=== PATIENT | male | born 1985 | race Caucasian/White ===

== ENCOUNTER 2018-04-13 12:35 | Emergency (ER) | payer MEDICAID ==
[2018-04-13] MEDS ORDERED: Diphtheria,Pertussis(Acell),Tetanus Vaccine 0.5 ML Syringe IM ONE (12:59)
--- NOTE | 2018-04-13 13:01 | EDM.PDOC ---
ED HPI GENERAL MEDICAL PROBLEM - General Chief Complaint: Laceration Stated Complaint: PT CUT FINGER ON LT HAND Time Seen by Provider: 04/13/18 12:44 Source of Information: Reports: Patient History Limitations: Reports: No Limitations - History of Present Illness INITIAL COMMENTS - FREE TEXT/NARRATIVE: HISTORY AND PHYSICAL: History of present illness: Patient is a 33-year-old male who presents to the emergency room today with complaints of a laceration which occurred last night around midnight. He states he was using a knife to cut something when it slipped creating a laceration to the left fifth digit. He states he applied a pressure dressing and went to bed. This morning he concerned as he was unable to bend his finger downward. Good sensation, no numbness or tingling. Tdap current. Review of systems: As per history of present illness and below otherwise all systems reviewed and negative. Past medical history: As per history of present illness and as reviewed below otherwise noncontributory. Surgical history: As per history of present illness and as reviewed below otherwise noncontributory. Social history: No reported history of drug or alcohol abuse. Family history: As per history of present illness and as reviewed below otherwise noncontributory. Physical exam: General: Well-developed and well-nourished 33-year-old male. Alert and oriented. Nontoxic appearing and in no acute distress. HEENT: Atraumatic, normocephalic, pupils equal and reactive bilaterally, negative for conjunctival pallor or scleral icterus, mucous membranes moist, throat clear, neck supple, nontender, trachea midline. No drooling or trismus noted. No meningeal signs Lungs: Clear to auscultation, breath sounds equal bilaterally, chest nontender. Heart: S1S2, regular rate and rhythm without overt murmur Abdomen: Soft, nondistended, nontender. Negative for masses. Negative for costovertebral tenderness. Pelvis: Stable nontender. Genitourinary: Deferred. Rectal: Deferred. Skin: 2 cm laceration to left 5th digit on the mid-finger on palmar surface. Otherwise intact, warm, dry. No lesions or rashes noted. Extremities: Appears to have flexor tendon injury of the left 5th digit, unable to bend finger into a closed food packer. Patient is able to extend and resist using the extensor tendon. No other finger or extremity involvement. Strong radial pulse. Cap refill less than 3 seconds. Neurovascular unremarkable. Neuro: Awake, alert, oriented. Cranial nerves II through XII unremarkable. Cerebellum unremarkable. Motor and sensory unremarkable throughout. Exam nonfocal. Notes: Dr Sanchez, hand surgery at [facility] in [place], is consulted on this case. He is requesting that the area be irrigated and an ulnar gutter splint to be applied. We'll place him on Keflex and he will follow-up with him tomorrow morning. This information was shared with the patient. I did also give him information for our local hand surgeon who may be available tomorrow. He voices understanding and is agreeable to plan of care. Denies any further questions or concerns at this time. 1% lidocaine was used to anesthetize the area. Patient tolerated well. Area was thoroughly irrigated with wound wash cleansed with chlorhexidine. No foreign debris noted. Usual and customary procedures were followed for sutures. 4-0 chromic was used, #6 interrupted sutures, patient tolerated well. Per Dr. Sanchez knees instructions patient was placed in a sugar tong splint. Prescription for Keflex. Signs and symptoms that would prompt him to return to the emergency room were reviewed and discussed. Reviewed the importance of close follow-up with the hand surgeon. Supportive care measures were reviewed and discussed. Patient voices understanding and is agreeable to plan of care. Denies any further questions or concerns at this time. Diagnostics: None Therapeutics: 1% lidocaine, wound care, nonstick dressing, splint Prescription: Keflex [place] Impression: Laceration Flexor Tendon Injury Plan: 1. Please keep the area clean and dry. Take the antibiotic as directed. Continue to monitor for signs of infection. 2. Please follow-up with the hand surgeon as we discussed. You may try to get in with Dr Barbara Huang, our hand surgeon. Or Dr Sanchez, Hand Surgeon at [facility], has agreed to see you. You need to be seen tomorrow for re- evaluation of the flexor tendon injury. 3. Tylenol and/or ibuprofen as needed for pain management. Rest, elevate the affected extremity. 4. Return to the ED as needed and as discussed. Definitive disposition and diagnosis as appropriate pending reevaluation and review of above. Duration: Hour(s): Location: Reports: Upper Extremity, Left Left 5-Little finger Pain Score (Numeric/FACES): 6 - Related Data Allergies Allergy/AdvReac Type Severity Reaction Status Date / Time No Known Allergies Allergy Verified 04/13/18 12:54 Home Meds: Home Meds . [No Known Home Meds] 04/13/18 [History] Past Medical History - Past Health History Medical/Surgical History: Denies Medical/Surgical History - Infectious Disease History Infectious Disease History: Reports: Chicken Pox Social & Family History - Family History Family Medical History: Noncontributory - Tobacco Use Smoking Status *Q: Current Every Day Smoker Years of Tobacco use: 1 Packs/Tins Daily: 0.5 - Recreational Drug Use Recreational Drug Use: No ED ROS GENERAL - Review of Systems Review Of Systems: ROS reveals no pertinent complaints other than HPI. ED EXAM, SKIN/RASH Exam: See Below (See dictation) ED SKIN PROCEDURES - Laceration/Wound Repair left 5th digit Lac/Wound length In cm: 2 Appearance: Subcutaneous Distal NVT: Neuro & Vascular Intact, Other (Flexor tendon injury) Anesthetic Type: Local Local Anesthesia - Lidocaine (Xylocaine): 1% Plain Local Anesthetic Volume: 3cc Skin Prep: Chlorhexidine (Hibiciens), Saline, Sterile Drape, Other (Wound Wash) Saline Irrigation (cc's): 50 Exploration/Debridement/Repair: Wound Explored, In a Bloodless Field, No Foreign Material Found Closed with: Sutures Suture Size: 4-0 # of Sutures: 6 Suture Type: Nylon, Interrupted Drain Placement: No Sterile Dressing Applied: Provider Tetanus Status Addressed: Yes Complications: No Course - Vital Signs Last Recorded V/S: Last Vital Signs Temp 99.2 F 04/13/18 12:51 Pulse 93 04/13/18 12:51 Resp 18 04/13/18 12:51 BP 125/75 04/13/18 12:51 Pulse Ox 95 04/13/18 12:51 - Orders/Labs/Meds Meds: Medications Discontinued Medications Generic Name Dose Route Start Last Admin Trade Name Freq PRN Reason Stop Dose Admin Diphtheria/Tetanus/Acell Pertussis 0.5 ml 04/13/18 12:59 04/13/18 13:18 Adacel IM 04/13/18 13:00 0.5 ml .ONCE ONE Administration Lidocaine HCl 5 ml 04/13/18 12:59 04/13/18 13:18 Xylocaine-Mpf 1% INJECT 04/13/18 13:00 5 ml ONETIME ONE Administration Departure - Departure Time of Disposition: 13:25 Disposition: Home, Self-Care 01 Clinical Impression: Laceration Injury of hand, flexor tendon Qualifiers: Encounter type: initial encounter Laterality: left Qualified Code(s): S66.802A - Unspecified injury of other specified muscles, fascia and tendons at wrist and hand level, left hand, initial encounter - Discharge Information Instructions: Cast or Splint Care, Adult, [id number], Laceration Care, Adult , [id number] Referrals: PCP,None [Primary Care Provider] - Forms: ED Department Discharge Additional Instructions: The following information is given to patients seen in the emergency department who are being discharged to home. This information is to outline your options for follow-up care. We provide all patients seen in our emergency department with a follow-up referral. The need for follow-up, as well as the timing and circumstances, are variable depending upon the specifics of your emergency department visit. If you don't have a primary care physician on staff, we will provide you with a referral. We always advise you to contact your personal physician following an emergency department visit to inform them of the circumstance of the visit and for follow-up with them and/or the need for any referrals to a consulting specialist. The emergency department will also refer you to a specialist when appropriate. This referral assures that you have the opportunity for follow-up care with a specialist. All of these measure are taken in an effort to provide you with optimal care, which includes your follow-up. Under all circumstances we always encourage you to contact your private physician who remains a resource for coordinating your care. When calling for follow-up care, please make the office aware that this follow-up is from your recent emergency room visit. If for any reason you are refused follow-up, please contact the [facility] Emergency Department at and asked to speak to the emergency department charge nurse. [facility] [place]: Dr Sanchez (Hand Surgeon) [facility] [place] [address] [facility] - Plastic Surgery: Dr Huang Professional Building [address] [place] [address], [address] [place] [address] 1. Please keep the area clean and dry. Take the antibiotic as directed. Continue to monitor for signs of infection. 2. Please follow-up with the hand surgeon as we discussed. You may try to get in with Dr Barbara Huang, our hand surgeon. Or Dr Sanchez, Hand Surgeon at [facility], has agreed to see you. You need to be seen tomorrow for re- evaluation of the flexor tendon injury. 3. Tylenol and/or ibuprofen as needed for pain management. [place] for moderate to severe pain, will cause drowsiness, so do not take while driving or needing to be functioning outside of the house. Rest, elevate the affected extremity. 4. Return to the ED as needed and as discussed.
== END 2018-04-13 13:50 | disposition home or self-care (01) ==
LOC: MW.ED 12:35
DX: S66.127A Laceration of flexor muscle, fascia and tendon of left little finger at wrist and hand level, initial encounter (principal); Z23 Encounter for immunization; F17.210 Nicotine dependence, cigarettes, uncomplicated; W26.0XXA Contact with knife, initial encounter
CPT/HCPCS: 90471; 90715; 99283-25

== ENCOUNTER 2018-05-16 10:13 | Emergency (ER) | payer OTHER ==
[2018-05-16] MEDS ORDERED: Sodium Chloride 0.9% 10 ML Syringe FLUSH PRN (10:24)
[2018-05-16] MEDS ORDERED: Sodium Chloride 0.9% 2.5 ML Syringe FLUSH PRN (10:24)
--- NOTE | 2018-05-16 10:42 | EDM.PDOC ---
ED HPI GENERAL MEDICAL PROBLEM - General Chief Complaint: Respiratory Problem Stated Complaint: CHEST PAINS SHORTNESS OF BREATH Time Seen by Provider: 05/16/18 10:37 Source of Information: Reports: Patient History Limitations: Reports: No Limitations - History of Present Illness INITIAL COMMENTS - FREE TEXT/NARRATIVE: HISTORY AND PHYSICAL: History of present illness: Patient is a 33-year-old male here with complaint of right sided chest pain and shortness of breath x 2 days. He states it feels like pulled muscles in his chest and radiates to his back and around his right side. He states it makes it hard to breath, can't take a deep breath secondary to the pain. He states he has had a dry cough x 3 months since moving to [place]. He denies any injury. He denies any abdominal pain, nausea, vomiting, diarrhea, constipation, left sided chest/arm/jaw pain, diaphoresis, headache, dizziness, palpitations. Patient had surgery on his right hand approximately 1 month ago. Smokes 1/2 ppd x 15 years. Review of systems: As per history of present illness and below otherwise all systems reviewed and negative. Past medical history: As per history of present illness and as reviewed below otherwise noncontributory. Surgical history: As per history of present illness and as reviewed below otherwise noncontributory. Social history: No reported history of drug or alcohol abuse. Family history: As per history of present illness and as reviewed below otherwise noncontributory. Physical exam: General: Patient sitting comfortably in no acute distress and nontoxic appearing HEENT: Atraumatic, normocephalic, pupils reactive, negative for conjunctival pallor or scleral icterus, mucous membranes moist, throat clear, neck supple, nontender, trachea midline. No meningeal signs. Lungs: Tender to palpation of the right lateral chest wall. Clear to auscultation, breath sounds equal bilaterally. Shallow breaths secondary to pain. Heart: S1S2, regular, negative for clicks, rubs, or overt murmur. Abdomen: Soft, nondistended, nontender. Negative for masses or hepatosplenomegaly. Negative for costovertebral tenderness. Pelvis: Stable nontender. Genitourinary: Deferred. Rectal: Deferred. Extremities: Patient reports pain in his anterior chest and back with movement of right shoulder. Atraumatic, negative for cords or calf pain. Neurovascular unremarkable. Neuro: Awake, alert, oriented. Cranial nerves II through XII unremarkable. Cerebellum unremarkable. Motor and sensory unremarkable throughout. Exam nonfocal. Notes: Diagnostics: CBC, CMP, Troponin, Lipase, EKG, CXR, Blood culture x 2 Therapeutics: Toradol 30mg IV Levaquin 750mg IV Prescriptions: Levaquin Impression: Pneumonia Plan: 1. Take antibiotic as directed. Tylenol or motrin as needed. 2. Follow up with primary care provider 3. Return to ED as needed as discussed Definitive disposition and diagnosis as appropriate pending reevaluation and review of above. Right side Pain Score (Numeric/FACES): 6 - Related Data Allergies Allergy/AdvReac Type Severity Reaction Status Date / Time No Known Allergies Allergy Verified 05/16/18 10:26 Home Meds: Home Meds levoFLOXacin [Levaquin] 750 mg PO DAILY 6 Days #6 tab 05/16/18 [Rx] Past Medical History - Past Health History Medical/Surgical History: Denies Medical/Surgical History Musculoskeletal History: Reports: Fracture Other Musculoskeletal History: right small finger - Infectious Disease History Infectious Disease History: Reports: None - Past Surgical History Head Surgeries/Procedures: Reports: None Musculoskeletal Surgical History: Reports: ORIF, Other (See Below) Other Musculoskeletal Surgeries/Procedures:: right small finger- has pins. "Tendon surgery" on the left pinky finger. Social & Family History - Family History Family Medical History: Noncontributory - Tobacco Use Smoking Status *Q: Current Every Day Smoker Years of Tobacco use: 0 Packs/Tins Daily: 0.5 - Caffeine Use Caffeine Use: Reports: Coffee - Recreational Drug Use Recreational Drug Use: No ED ROS GENERAL - Review of Systems Review Of Systems: ROS reveals no pertinent complaints other than HPI. ED EXAM, GENERAL - Physical Exam Exam: See Below (see dictation) Course - Vital Signs Last Recorded V/S: Last Vital Signs Temp 36.4 C 05/16/18 10:21 Pulse 115 H 05/16/18 10:21 Resp 18 05/16/18 10:21 BP 154/88 H 05/16/18 10:21 Pulse Ox 97 05/16/18 10:21 - Orders/Labs/Meds Orders: Active Orders 24 hr Category Date Time Status EKG Documentation Completion [RC] STAT Care 05/16/18 10:24 Active Chest 1V Frontal [CR] Stat Exams 05/16/18 10:24 Taken CULTURE BLOOD [BC] Stat Lab 05/16/18 11:13 Received CULTURE BLOOD [BC] Stat Lab 05/16/18 11:23 Received Levofloxacin/Dextrose 5%-Water [Levaquin in D5W 750 MG/ Med 05/16/18 11:42 Active 150 ML] 750 mg Premix Bag 1 bag IV ONETIME Sodium Chloride 0.9% [Saline Flush] Med 05/16/18 10:24 Active 10 ml FLUSH ASDIRECTED PRN Sodium Chloride 0.9% [Saline Flush] Med 05/16/18 10:24 Active 2.5 ml FLUSH ASDIRECTED PRN Blood Culture x2 Reflex Set [OM.PC] Stat Oth 05/16/18 11:05 Ordered Saline Lock Insert [OM.PC] Stat Oth 05/16/18 10:24 Ordered Medication Orders Levofloxacin/Dextrose 750 mg/ (Premix) 150 mls @ 100 mls/hr IV ONETIME ONE Stop: 05/16/18 13:11 Last Admin: 05/16/18 11:48 Dose: 100 mls/hr Sodium Chloride (Saline Flush) 10 ml FLUSH ASDIRECTED PRN PRN Reason: Keep Vein Open Last Admin: 05/16/18 10:40 Dose: 10 ml Sodium Chloride (Saline Flush) 2.5 ml FLUSH ASDIRECTED PRN PRN Reason: Keep Vein Open Last Admin: 05/16/18 10:40 Dose: 2.5 ml Labs: Laboratory Tests 05/16/18 05/16/18 Range/Units 10:47 10:47 WBC 12.94 H (4.0-11.0) K/uL RBC 5.25 (4.50-5.90) M/uL Hgb 15.9 (13.0-17.0) g/dL Hct 46.6 (38.0-50.0) % MCV 88.8 (80.0-98.0) fL MCH 30.3 (27.0-32.0) pg MCHC 34.1 (31.0-37.0) g/dL RDW Std Deviation 41.7 (28.0-62.0) fl RDW Coeff of Tomasa 13 (11.0-15.0) % Plt Count 369 (150-400) K/uL MPV 9.20 (7.40-12.00) fL Neut % (Auto) 63.6 (48.0-80.0) % Lymph % (Auto) 15.1 L (16.0-40.0) % [place] % (Auto) 13.0 (0.0-15.0) % Eos % (Auto) 8.1 H (0.0-7.0) % Baso % (Auto) 0.2 (0.0-1.5) % Neut # (Auto) 8.2 H (1.4-5.7) K/uL Lymph # (Auto) 2.0 (0.6-2.4) K/uL [place] # (Auto) 1.7 H (0.0-0.8) K/uL Eos # (Auto) 1.1 H (0.0-0.7) K/uL Baso # (Auto) 0.0 (0.0-0.1) K/uL Nucleated RBC % 0.0 /100WBC Nucleated RBCs # 0 K/uL Sodium 136 (136-148) mmol/L Potassium 4.0 (3.5-5.1) mmol/L Chloride 98 (98-107) mmol/L Carbon Dioxide 30.1 (21.0-32.0) mmol/L BUN 9 (7.0-18.0) mg/dL Creatinine 0.8 (0.8-1.3) mg/dL Est Cr Clr Drug Dosing 142.49 mL/min Estimated GFR (MDRD) > 60.0 ml/min Glucose 104 (74-106) mg/dL Calcium 9.3 (8.5-10.1) mg/dL Total Bilirubin 1.4 H (0.2-1.0) mg/dL AST 21 (15-37) IU/L ALT 34 (14-63) IU/L Alkaline Phosphatase 76 (46-116) U/L Troponin I < 0.050 (0.000-0.056) ng/mL Total Protein 8.2 (6.4-8.2) g/dL Albumin 3.4 (3.4-5.0) g/dL Globulin 4.8 H (2.0-3.5) g/dL Albumin/Globulin Ratio 0.7 L (1.3-2.8) Lipase 59 L (73-393) U/L Meds: Medications Generic Name Dose Route Start Last Admin Trade Name Freq PRN Reason Stop Dose Admin Levofloxacin/Dextrose 750 mg/ 150 mls @ 100 mls/hr 05/16/18 11:42 05/16/18 11 :48 Premix IV 05/16/18 13:11 100 mls/hr ONETIME ONE Administration Sodium Chloride 10 ml 05/16/18 10:24 05/16/18 10:40 Saline Flush FLUSH 10 ml ASDIRECTED PRN Administration Keep Vein Open Sodium Chloride 2.5 ml 05/16/18 10:24 05/16/18 10:40 Saline Flush FLUSH 2.5 ml ASDIRECTED PRN Administration Keep Vein Open Discontinued Medications Generic Name Dose Route Start Last Admin Trade Name Freq PRN Reason Stop Dose Admin Ketorolac Tromethamine 30 mg 05/16/18 10:47 05/16/18 10:55 Toradol IVPUSH 05/16/18 10:48 30 mg ONETIME ONE Administration Departure - Departure Time of Disposition: 12:06 Disposition: Home, Self-Care 01 Condition: Good Clinical Impression: Pneumonia - Discharge Information Prescriptions: levoFLOXacin [Levaquin] 750 mg PO DAILY 6 Days #6 tab Referrals: PCP,None [Primary Care Provider] - Forms: ED Department Discharge Additional Instructions: The following information is given to patients seen in the emergency department who are being discharged to home. This information is to outline your options for follow-up care. We provide all patients seen in our emergency department with a follow-up referral. The need for follow-up, as well as the timing and circumstances, are variable depending upon the specifics of your emergency department visit. If you don't have a primary care physician on staff, we will provide you with a referral. We always advise you to contact your personal physician following an emergency department visit to inform them of the circumstance of the visit and for follow-up with them and/or the need for any referrals to a consulting specialist. The emergency department will also refer you to a specialist when appropriate. This referral assures that you have the opportunity for follow-up care with a specialist. All of these measure are taken in an effort to provide you with optimal care, which includes your follow-up. Under all circumstances we always encourage you to contact your private physician who remains a resource for coordinating your care. When calling for follow-up care, please make the office aware that this follow-up is from your recent emergency room visit. If for any reason you are refused follow-up, please contact the [facility] Emergency Department at and asked to speak to the emergency department charge nurse. [facility] [address] [place] [address] [facility] [address] [place] [address] 1. Take antibiotic as directed. Tylenol or motrin as needed. 2. Follow up with primary care provider 3. Return to ED as needed as discussed - My Orders Last 24 Hours: My Active Orders 05/16/18 10:24 EKG Documentation Completion [RC] STAT Chest 1V Frontal [CR] Stat Sodium Chloride 0.9% [Saline Flush] 10 ml FLUSH ASDIRECTED PRN Sodium Chloride 0.9% [Saline Flush] 2.5 ml FLUSH ASDIRECTED PRN Saline Lock Insert [OM.PC] Stat 05/16/18 11:05 Blood Culture x2 Reflex Set [OM.PC] Stat 05/16/18 11:13 CULTURE BLOOD [BC] Stat 05/16/18 11:23 CULTURE BLOOD [BC] Stat 05/16/18 11:42 Levofloxacin/Dextrose 5%-Water [Levaquin in D5W 750 MG/150 ML] 750 mg Premix Bag 1 bag IV ONETIME - Assessment/Plan Last 24 Hours: My Active Orders 05/16/18 10:24 EKG Documentation Completion [RC] STAT Chest 1V Frontal [CR] Stat Sodium Chloride 0.9% [Saline Flush] 10 ml FLUSH ASDIRECTED PRN Sodium Chloride 0.9% [Saline Flush] 2.5 ml FLUSH ASDIRECTED PRN Saline Lock Insert [OM.PC] Stat 05/16/18 11:05 Blood Culture x2 Reflex Set [OM.PC] Stat 05/16/18 11:13 CULTURE BLOOD [BC] Stat 05/16/18 11:23 CULTURE BLOOD [BC] Stat 05/16/18 11:42 Levofloxacin/Dextrose 5%-Water [Levaquin in D5W 750 MG/150 ML] 750 mg Premix Bag 1 bag IV ONETIME
[2018-05-16] MEDS ORDERED: Ketorolac 30 MG/ML SDV IVPUSH ONE (10:47)
[2018-05-16 11:24] LABS: CHLORIDE,CL 98 mmol/L (98-107); SODIUM,NA 136 mmol/L (136-148)
[2018-05-16] MEDS ORDERED: Levofloxacin/Dextrose 5%-Water 750 MG in Premix Bag 1 BAG IV ONE (11:42)
--- NOTE | 2018-05-18 13:54 | CR ---
EXAM DATE: 05/16/18 PATIENT'S AGE: 33 Patient: SARITA CISSE Facility: [place], [place] Site . Site : 1985 Study: XRay Chest [id number]/6/2018 10:53:42 AM Ordering Physician: Doctor Siddiqi Final Report: INDICATION: Chest pain. TECHNIQUE: One-view portable chest. FINDINGS: Heart and mediastinum are normal in size. Pulmonary vessels are normal. Dense consolidation in the right mid and lower lung field raises concern for pneumonia. The left lung is clear. No pleural fluid. No acute bony abnormality. IMPRESSION: Dense consolidation in the right lung raises concern for pneumonia. Dictated by Moises Willett MD @ May 16 2018 11:36AM (Electronic Signature) Report Signed by Proxy. ALEIDA
== END 2018-05-16 13:24 | disposition home or self-care (01) ==
LOC: MW.ED 10:13
DX: J18.9 Pneumonia, unspecified organism (principal); F17.210 Nicotine dependence, cigarettes, uncomplicated
CPT/HCPCS: 36415; 71045; 80053; 83690; 84484; 85025; 87040; 93005; 96365; 96375; 99285; J1885; J1956; 99283